=== PATIENT | male | born 2005 | race Two or more races ===

== ENCOUNTER 2024-09-01 01:28 | Emergency (ER) | payer OTHER, MEDICAID ==
[~2024-09-01] VITALS: Ht 165.1 cm; Wt 99.1 kg
[2024-09-01 02:01] LABS: Basophils # (auto) 0.1 10 ^3/uL (0-0.2); Basophils % (auto) 0.7 % (0.0-2.0); Eosinophils # (auto) 0.1 10 ^3/uL (0-0.8); Eosinophils % (auto) 0.8 % (0.0-7.0); Hematocrit 42.6 % (41.0-53.0); Lymphocytes # (auto) 2.4 10 ^3/uL (0.4-5.4); Lymphocytes % (auto) 24.5 % (10.0-50.0); Mean Corpuscular Hgb Conc. 35.1 g/dL (32.0-36.0); Mean Corpuscular Volume 85.6 fL (80.0-100.0); Monocytes # (auto) 0.5 10 ^3/uL (0-1.3); Neutrophils # (auto) 6.8 10 ^3/uL (1.6-8.6); Nucleated Red Blood Cells % 0.1 %; Platelet Count (auto) 292 10^3/uL (140-450); Red Blood Cells 4.98 10^6/uL (4.5-5.90); Red Cell Distribution Width 13.6 % (11.8-14.3); White Blood Cell 9.9 10^3/uL (4.4-10.8)
[2024-09-01 02:08] LABS: Albumin 4.8 g/dL (3.2-4.8); Alkaline Phosphatase 77 U/L (46-116); Anion Gap 8 (5-15); Aspartate Aminotransferase 40 U/L (13-40); BUN/Creatinine Ratio 13.3 (10.0-20.0); Bilirubin, Total 0.5 mg/dL (0.2-1.0); Blood Urea Nitrogen 14 mg/dL (9-23); Calcium 9.7 mg/dL (8.7-10.4); Carbon Dioxide 24 mmol/L (20-31); Chloride 103 mmol/L (98-107)
[2024-09-01 02:09] LABS: Total Protein 6.9 g/dL (5.7-8.2)
[2024-09-01] MEDS: MAALOX PLUS or MAALOX 30 ML PO ONE (02:09)
[2024-09-01] MEDS: LIDOCAINE VISCOUS 2% 15ML UD MT ONE (02:09)
[2024-09-01] MEDS: DONNATAL 5ml ORAL Elix (BELLADONNA ALK-PHENOBARB) PO ONE (02:09)
[2024-09-01 02:10] LABS: Alanine Aminotransferase 66 U/L (7-40); Glucose 188 mg/dL (74-106); Potassium 3.3 mmol/L (3.5-5.1); Sodium 135 mmol/L (136-145)
[2024-09-01 02:18] VITALS: BP 119/80; PULSE 114; RESP 18; TEMP 98.6; O2SAT 98
--- NOTE | 2024-09-01 02:24 | ED.PDOC ---
Eye-HPI HPI Comments THIS IS A 18-YEAR-OLD MALE WITH HISTORY OF HEMOPHILIA PRESENTS TO THE ED CHIEF COMPLAINT CHEST PAIN. PT STATES HE AWOKE WITH MID CHEST PAIN RADIATING TO LEFT CHEST 8/10 ON PAIN SCALE SHARP AND SHOOTING IN NATURE. DENIES SHORTNESS BREATH, DIFFICULTY BREATHING, NAUSEA, VOMITING, DIZZINESS, RECENT TRAVEL OR ILL CONTACTS Chief Complaint: Chest Pain Time Seen by MD: 01:45 Reviewed Notes: Nurses Notes, Medications, Allergies Allergies: Coded Allergies: NSAIDs (Verified Allergy, Unknown, 09/01/24) Information Source: Patient, Relative (Mother) Mode of Arrival: Ambulatory Past Medical History Immunizations: Current Medical History: Denies Operations: Denies Family History Family History: Reviewed,noncontributory to illness Social History Smoking: Non-Smoker Alcohol: Denies ETOH Use Drugs: Denies Drug Use Constitutional: denies: chills, diaphoresis, fatigue, fever, malaise, sweats, weakness, others EENTM: denies: blurred vision, double vision, ear bleeding, ear discharge, ear drainage, ear pain, ear ringing, eye pain, eye redness, hearing loss, mouth pain, mouth swelling, nasal discharge, nose bleeding, nose congestion, nose pain, photophobia, tearing, throat pain, throat swelling, voice changes, others Respiratory: denies: cough, hemoptysis, orthopnea, SOB at rest, shortness of breath, SOB with excertion, stridor, wheezing, others Cardiovascular: reports: chest pain; denies: dizzy spells, diaphoresis, Dyspnea on exertion, edema, irregular heart beat, left arm pain, lightheadedness, palpitations, PND, syncope, others Gastrointestinal: denies: abdomen distended, abdominal pain, blood streaked bowels, constipated, diarrhea, dysphagia, difficulty swallowing, hematemesis, melena, nausea, poor appetite, poor fluid intake, rectal bleeding, rectal pain, vomiting, others Genitourinary: denies: burning, dysuria, flank pain, frequency, hematuria, incontinence, penile discharge, penile sore, pain, testicle pain, testicle swelling, urgency, others Neurological: denies: dizziness, fainting, headache, left sided numbness, left sided weakness, numbness, paresthesia, pre-existing deficit, right sided nu mbness, right sided weakness, seizure, speech problems, tingling, tremors, weakness, others Musculoskeletal: denies: back pain, gout, joint pain, joint swelling, muscle pain, muscle stiffness, neck pain, others Integumetry: denies: bruises, change in color, change in hair/nails, dryness, laceration, lesions, lumps, rash, wounds, others Allergic/Immunocompromised: denies: Difficulty Healing, Frequent Infections, Hives, Itching, others Hematologic/Lymphatic: denies: anemia, blood clots, easy bleeding, easy bruising, swollen glands, others Endocrine: denies: excessive hunger, excessive sweating, excessive thirst, excessive urination, flushing, intolerance to cold, intolerance to heat, unexplained weight gain, unexplained weight loss, others Psychiatric: denies: anxiety, bipolar disorder, depression, hopeless, panic disorder, schizophrenia, sleepless, suicidal, others Physical Exam General Appearance: No Apparent Distress, Normal HEENT: Normal ENT Inspection, Pharynx Normal, TMs Normal Neck: Full Range of Motion, Non-Tender Respiratory: Chest Non-Tender, Lungs Clear, No Accessory Muscle Use, No Respiratory Distress, Normal Breath Sounds Cardiovascular: No Edema, No JVD, No Murmur, No Gallop, Normal Peripheral Pulses, Regular Rate/Rhythm Breast Exam: Deferred Gastrointestinal: No Organomegaly, Non Tender, No Pulsatile Mass, Normal Bowel Sounds, Soft, Tenderness (OVER EPIGASTRIUM) Genitalia: Deferred Pelvic: Deferred Rectal: Deferred Extremities: Normal capillary refill, Normal inspection, Normal range of motion, Non-tender, No pedal edema Musculoskeletal : Apperance: Normal Neurologic: Alert, 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 Was a procedure done?: No EENT DIFF Eye: N/A Other Differential Diagnosis ACID REFLUX. CHOLECYSTITIS. CARDIAC CHEST PAIN. CHEST WALL PAIN X-Ray, Labs, Meds, VS Vital Signs Date Time Temp Pulse Resp B/P (MAP) Pulse Ox O2 Delivery O2 Flow Rate FiO2 09/01/24 02:18 114 18 98 Room Air 09/01/24 02:18 98.6 114 18 119/80 (93) 98 98.6 09/01/24 01:49 98.6 114 18 119/80 (93) 98 Lab Test 09/01/24 03:22 09/01/24 01:37 Range/Units Urine Color Light-yellow Yellow Urine Clarity Clear Clear Urine pH 6.0 5.0-9.0 Urine Specific [place] 1.016 1.001-1.035 Urine Protein Trace H Negative Urine Ketones Negative Negative Urine Blood Negative Negative /uL Urine Nitrite Negative Negative Urine Bilirubin Negative Negative Urine Urobilinogen Normal Negative mg/dL Urine Leukocyte Esterase Negative Negative /uL Urine RBC 1 0 - 3 /hpf Urine Microscopic WBC < 1 0-3 /HPF Urine Squamous Epithelial Cells None seen <5 /hpf Urine Bacteria None seen None Seen /hpf Urine Glucose Trace Normal mg/dL White Blood Count 9.9 4.4-10.8 10^3/uL Red Blood Count 4.98 4.5-5.90 10^6/uL Hemoglobin 15.0 13.5-17.5 g/dL Hematocrit 42.6 41.0-53.0 % Mean Corpuscular Volume 85.6 80.0-100.0 fL Mean Corpuscular Hemoglobin 30.0 28.0-32.0 pg Mean Corpuscular Hemoglobin Concent 35.1 32.0-36.0 g/dL Red Cell Distribution Width 13.6 11.8-14.3 % Platelet Count 292 140-450 10^3/uL Mean Platelet Volume 8.1 6.9-10.8 fL Neutrophils (%) (Auto) 69.0 37.0-80.0 % Lymphocytes (%) (Auto) 24.5 10.0-50.0 % Monocytes (%) (Auto) 5.0 0.0-12.0 % Eosinophils (%) (Auto) 0.8 0.0-7.0 % Basophils (%) (Auto) 0.7 0.0-2.0 % Neutrophils # (Auto) 6.8 1.6-8.6 10 ^3/uL Lymphocytes # (Auto) 2.4 0.4-5.4 10 ^3/uL Monocytes # (Auto) 0.5 0-1.3 10 ^3/uL Eosinophils # (Auto) 0.1 0-0.8 10 ^3/uL Basophils # (Auto) 0.1 0-0.2 10 ^3/uL Nucleated Red Blood Cells 0.1 % Sodium Level 135 L 136-145 mmol/L Potassium Level 3.3 L 3.5-5.1 mmol/L Chloride Level 103 98-107 mmol/L Carbon Dioxide Level 24 20-31 mmol/L Anion Gap 8 5-15 Blood Urea Nitrogen 14 9-23 mg/dL Creatinine 1.05 0.700-1.30 mg/dL Glomerular Filtration Rate Calc 105 >90 mL/min BUN/Creatinine Ratio 13.3 10.0-20.0 Serum Glucose 188 H 74-106 mg/dL Calcium Level 9.7 8.7-10.4 mg/dL Total Bilirubin 0.5 0.2-1.0 mg/dL Aspartate Amino Transferase (AST) 40 13-40 U/L Alanine Aminotransferase (ALT) 66 H 7-40 U/L Alkaline Phosphatase 77 46-116 U/L Troponin I High Sensitivity < 3 L </=54 ng/L Total Protein 6.9 5.7-8.2 g/dL Albumin 4.8 3.2-4.8 g/dL Lipase 40 12-53 U/L Current Medications Medications (Trade) Dose Ordered Sig/Antonia Route Start Time Stop Time Status Last Admin Al Hydrox/Mg Hydrox/Simethicone (Maalox Plus) 30 ml ONCE ONCE PO 09/01/24 02:00 09/01/24 02:01 DC 09/01/24 02:09 Belladonna Alkaloids/ Phenobarbital ( Elixir) 5 ml ONCE ONCE PO 09/01/24 02:00 09/01/24 02:01 DC 09/01/24 02:09 Lidocaine HCl (Xylocaine 2% Viscous) 5 ml ONCE ONCE MT 09/01/24 02:00 09/01/24 02:01 DC 09/01/24 02:09 Time of 1ST Reevaluation: 04:37 Reevaluation 1ST: Improved Patient Education/Counseling: Diagnosis, Treatment Family Education/Counseling: Diagnosis, Treatment, Prognosis, Need For Follow Up Departure 1 Departure Time of Disposition: 04:36 Impression: Primary Impression: Chest pain Qualified Codes: R07.9 - Chest pain, unspecified Additional Impression: Epigastric abdominal pain Disposition: 01 HOME / SELF CARE / HOMELESS Condition: Stable e-Prescriptions Pantoprazole Sodium Sesquihydr (Protonix) 40 Mg Tab 40 MG PO DAILY for 14 Days, #14 TAB Prov: YANG STORY 09/01/24 Discharged With: Relative (Mother) Critical Care Note Critical Care Time?: No Stability Stability form required: No YANG STORY Sep 01, 2024 02:24
[2024-09-01 03:24] LABS: Urine Bacteria None Seen /hpf (None Seen)
[2024-09-01 03:34] LABS: Urine Blood Negative /uL (Negative); Urine Clarity Clear (Clear); Urine Color Light-Yellow (Yellow); Urine Protein, UAD TRACE (Negative); Urine Specific Gravity 1.016 (1.001-1.035); Urine Squamous Epithelial Cell None Seen /hpf (<5); Urine Urobilinogen Normal (Negative); Urine WBC < 1 /HPF (0-3)
--- NOTE | 2024-09-01 04:03 | DVH ---
Examination: CXR2 Clinical Indication: CHEST PAIN Comparison: None. Technique: Frontal and lateral view of chest radiograph Findings: The lung parenchyma is clear. Hilar and mediastinal shadows show no obvious abnormality. Costophrenic angles are clear. Cardiac shadow size is within normal limits. Impression: No significant abnormality is seen. Electronically Signed 09/01/2024 04:02 Era Queen
--- NOTE | 2024-09-01 04:21 | DVH ---
Exam: CT CT AB PEL WO CON-NO ORAL OR IV History: RUQ/EPIGASTRIC PAIN Comparison Study: None available at time of dictation. TECHNIQUE: Multidetector CT of the abdomen was performed from lung bases to pubic symphysis. Imaging was performed without IV contrast. Axial, coronal and sagittal multiplanar reformats were obtained fr om the axial data set by the technologist. Radiation optimization: All CT scans at this facility use at least one of these dose optimization og hniques: automated exposure control mA and/or kV adjustment per patient size (includes targeted exam s where dose is matched to clinical indication) or iterative reconstruction. Radiation Dose Information: CT Dose: CTDI volume is 14.9 mGy. Dose-length product is 962.75 mGy*cm FINDINGS: Imaged portions of the lung bases appear unremarkable. There is diffuse hepatic steatosis. The gallbladder, spleen, pancreas and adrenal glands appear unrem arkable. The right kidney is atrophic in the left kidney appears hypertrophic. No evidence of bowel obstruction or focal bowel wall thickening. The appendix appears normal. No free fluid, free air, or adenopathy. No suspicious osseous lesion. IMPRESSION: 1. No acute abdominal or pelvic finding. 2. Hepatic steatosis. 3. Right renal atrophy with hypertrophy of the left kidney.
[2024-09-01] MEDS ORDERED: PANT40TA2 PO (04:37)
--- NOTE | 2024-09-02 07:19 | ECG ---
[facility] Test Date: 2024-09-01 Test Time: 01:35:10 Pat Name: CINTIA OSORIO Department: ER Room: Gender: M [employer]ter: [id number] : [id number] Requested By: EMERGENCY EMERGENCY Order Number: [id number] Reading MD: Lonny Garza Measurements Intervals [place] Rate: 113 P: 73 MS: 149 QRS: 72 QRSD: 96 T: 27 QT: 314 QTc: 431 Interpretive Statements Sinus tachycardia . Electronically Signed On 09-02-2024 14:44:38 PST by Lonny Garza Please click the below link to view image of tracing.
== END 2024-09-01 04:58 | disposition home or self-care (01) ==
LOC: ER 01:28
DX: R10.13 Epigastric pain (principal); R07.89 Other chest pain; Z88.8 Allergy status to other drugs, medicaments and biological substances
CPT/HCPCS: 36415; 71046; 74176; 80053; 81001; 83690; 84484; 85025; 93005